=== PATIENT | male | born 1970 | race African-American/Black ===

== ENCOUNTER 2020-10-17 09:58 | Emergency (ER) | payer SELFPAY ==
[2020-10-17 10:29] LABS: Urine Blood Negative (Negative); Urine Glucose Negative (Negative); Urine Protein 1+ (Negative); Urine Specific Gravity 1.025 (1.005-1.030); Urine pH 5.5 (5.0-7.0)
[2020-10-17 11:22] LABS: Absolute Lymphocytes (CBC) 1.1 K/uL (0.7-4.9); Basophils % 0.3 % (0-1.3); Hematocrit 38.2 % (39.6-49.0); Lymphocytes % 7.9 % (15.3-44.8); MPV 8.7 fL (7.6-11.3); RBC Red Blood Cell Count 4.28 M/uL (4.33-5.43)
[2020-10-17 11:25] LABS: Protime INR 1.2
[2020-10-17 11:29] LABS: ALT/SGPT 16 U/L (12-78); AST/SGOT 18 U/L (15-37); Albumin 3.6 g/dL (3.4-5.0); Alkaline Phosphatase 129 U/L (45-117); BUN Blood Urea Nitrogen 9 mg/dL (7-18); Bicarbonate 26 mmol/L (21-32); Bilirubin Direct 0.2 mg/dL (0-0.2); Bilirubin Total 0.8 mg/dL (0.2-1.0); Glucose Level 119 mg/dL (74-106); Magnesium 2.1 mg/dL (1.8-2.4); NT PRO-BNP 33 pg/mL (<125); Potassium 3.6 mmol/L (3.5-5.1); Protein, Total 8.6 g/dL (6.4-8.2); Sodium Level 136 mmol/L (136-145); Troponin (Emerg Dept Use Only) < 0.02 ng/mL (0.0-0.045)
--- NOTE | 2020-10-17 11:39 | RAD REPORT ---
EXAM DESCRIPTION: RAD - Chest Single View - 10/17/2020 11:28 am CLINICAL HISTORY: DYSPNEA COMPARISON: CHEST SINGLE VIEW dated 09/22/2011 FINDINGS: No evidence of edema or pneumonia. The heart size is within normal limits.No acute osseous abnormality. No significant pleural effusions or pneumothorax. IMPRESSION: No acute cardiopulmonary disease.
--- NOTE | 2020-10-17 12:40 | RAD REPORT ---
EXAM DESCRIPTION: CT - Chest For Pe Angio - 10/17/2020 12:21 pm CLINICAL HISTORY: new DVT;Dyspnea COMPARISON: No comparisons FINDINGS: Chest Wall: No suspicious thyroid nodules or pathologic lymphadenopathy. Lungs: Evaluation for small nodules is limited by respiratory motion. . No edema or evidence of pneum onia is identified. Pleura: No significant effusions or pneumothorax. Mediastinum/tere: No pathologic lymphadenopathy. Heart: No significant pericardial effusion. Normal heart size. Upper abdomen: No acute abnormality. Bones: No acute abnormality. IMPRESSION: Negative for pulmonary embolism. Respiratory motion but no acute abnormality otherwise i dentified.
[2020-10-17] MEDS ORDERED: APIXABAN 5 MG TABLET ONE (15:19)
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
[2020-10-17 17:58] VITALS: TEMP 98.5; O2SAT 100
[2020-10-17 18:06] VITALS: BP 105/78
--- NOTE | 2020-10-18 20:40 | RAD REPORT ---
EXAM DESCRIPTION: US - Extremity Venous Uni Ltd - 10/17/2020 11:25 am CLINICAL HISTORY: Pain and swelling COMPARISON: None. TECHNIQUE: Real-time sonographic evaluation of the right lower extremity deep venous system was perf ormed. FINDINGS: The popliteal and common femoral veins are noncompressible consistent with the presence of thrombosis. The posterior tibial vein is compressible. The greater saphenous vein is compressible. IMPRESSION: Positive for deep venous thrombosis in the right common femoral and popliteal veins.
--- NOTE | 2020-10-20 16:15 | EKG ---
Test Date: 2020-10-17 Test Time: 10:46:48 Oil Dispatcher: YUMIKO MEASUREMENT RESULTS: Intervals: Rate: 67 SD: 188 QRSD: 92 QT: 392 QTc: 414 [place]: P: 4 SD: 188 QRS: 2 T: -6 INTERPRETIVE STATEMENTS: Normal sinus rhythm Minimal voltage criteria for LVH, may be normal variant Borderline ECG No previous ECG available for comparison Electronically Signed On 10-20-20 16:05:51 CDT by Kirt Marcos
== END 2020-10-17 17:52 | disposition home or self-care (01) ==
LOC: ER 09:58
DX: I82.401 Acute embolism and thrombosis of unspecified deep veins of right lower extremity (principal)
CPT/HCPCS: 36415; 71045; 71275; 80048; 80076; 81003; 83735; 83880; 84484; 85025; 85610; 93005; 93971; 99284; Q9967